=== PATIENT | male | born 1965 | race Caucasian/White ===

== ENCOUNTER → 2020-07-14 09:51 | Outpatient (CLI) | payer OTHER, SELFPAY ==
[2020-07-14] MEDS: COVID-19 VACC #1, MRNA(MOD) 100 MCG/0.5 ML VIAL IM (09:59)
== END ==
PROVIDERS: Visit Provider Internal Medicine
DX: Z23 Encounter for immunization (principal)
CPT/HCPCS: 0011A; 91301

== ENCOUNTER → 2020-08-11 10:02 | Outpatient (CLI) | payer OTHER, SELFPAY ==
[2020-08-11] MEDS: COVID-19 VACC #2, MRNA(MOD) 100 MCG/0.5 ML VIAL IM (10:05)
== END ==
PROVIDERS: Visit Provider Internal Medicine
DX: Z23 Encounter for immunization (principal)
CPT/HCPCS: 0012A; 91301

== ENCOUNTER 2024-01-15 20:58 | Emergency (ER) | payer BC, SELFPAY ==
[2024-01-15 21:16] VITALS: BP 190/118; PULSE 104; RESP 16; TEMP 37.2; O2SAT 98; BMI 32.6
[2024-01-15 21:24] VITALS: O2SAT 95
[2024-01-15 21:25] VITALS: BP 200/120; PULSE 104; O2SAT 96
--- NOTE | 2024-01-15 21:26 | ED.GENADULT ---
HPI - General Adult General Chief complaint: Hypertension Stated complaint: high bp Time Seen by Provider: 01/15/24 21:02 Source: patient Mode of arrival: Ambulatory History of Present Illness HPI narrative: 58yoM with PMH HLD, smokeless tobacco use present by private vehicle for elevated blood pressure readings. Patient states last night he didn't get a lot of sleep and this morning he was at his dentist's office for routine cleaning. As part of his dental office procedure they took a blood pressure, and it was systolic 170s. He states that because of his elevated blood pressure reading he did not undergo his cleaning. Patient states that he was checked his blood pressure several times throughout the day, and it has remained elevated. Patient presented out of concern because he knew that the last ferry from [facility] was leaving and he would be without transportation through the night if anything happens. Patient denies history of hypertension. His last doctor's appointment was 4 months ago and his blood pressure was normal. Patient was not normally measure his blood pressure and so his last known reading was 4 months ago at his PCP workup. Related Data Previous Rx's Medication Instructions Recorded amlodipine 5 mg tablet 5 mg PO DAILY #30 tabs 01/15/24 Allergies Allergy/AdvReac Type Severity Reaction Status Date / Time No Known Drug Allergies Allergy Verified 01/15/24 21:16 Patient History Social History Smoking Status: Never smoker Smoking Status: Never smoker tobacco type: smokeless tobacco alcohol intake frequency: a few times a week Substance Use Type: does not use Exam Initial Vital Signs Initial Vital Signs: Vital Signs Temperature 98.9 F 01/15/24 21:16 Pulse Rate 104 H 01/15/24 21:16 Respiratory Rate 16 01/15/24 21:16 Blood Pressure 190/118 H 01/15/24 21:16 Pulse Oximetry 98 01/15/24 21:16 Oxygen Delivery Method Room Air 01/15/24 21:16 Const: Awake, alert, no acute distress, nontoxic appearing Cardiac: regular rate, regular rhythm RESP: unlabored, clear bilaterally, no wheezing MSK: no edema, full range of motion, pulses equal Skin: Warm, Dry, intact, no rashes Neuro: AO x3, CN II-XII grossly intact, moves all extremities Course Orders Ordered: ED Orders 01/15/24 21:30 CBC Auto Diff [Complete Blood Count AUTO DIFF] Stat CMP [Comprehensive Metabolic Panel] Stat 01/15/24 21:54 EKG-12 Lead Stat Discontinued Medications Amlodipine Besylate (Amlodipine 5 Mg Tablet) 5 mg PO NOW ONE Stop: 01/15/24 22:32 Last Admin: 01/15/24 22:35 Dose: 5 mg Documented By: Vital Signs Vital signs: Vital Signs - 8 hr 01/15/24 21:16 01/15/24 21:24 01/15/24 21:25 Temperature 98.9 F Pulse Rate 104 H 104 H Respiratory Rate 16 Blood Pressure 190/118 H Pulse Oximetry 98 95 96 Oxygen Delivery Method Room Air 01/15/24 21:25 01/15/24 21:30 01/15/24 21:30 Temperature Pulse Rate 105 H Respiratory Rate 20 Blood Pressure 200/120 H 186/115 H Pulse Oximetry 97 Oxygen Delivery Method Room Air 01/15/24 22:00 01/15/24 22:00 Temperature Pulse Rate 99 H Respiratory Rate 13 Blood Pressure 183/102 H Pulse Oximetry 95 Oxygen Delivery Method Medical Decision Making Lab Data 01/15/24 21:30 01/15/24 21:30 Labs: Lab Results 01/15/24 Range/Units 21:30 WBC 9.0 (4.5-11.0) X10^3/uL RBC 4.73 (4.5-5.9) X10^6/uL Hgb 14.8 (13.5-17.5) g/dL Hct 44.1 (41-53) % MCV 93.3 (80-100) fL MCH 31.3 (26-34) PG MCHC 33.6 (30-36) % RDW 14.5 (11.6-14.8) % Plt Count 198 (150-400) X10^3/uL Neut % (Auto) 69.4 (50-75) % Lymph % (Auto) 19.2 L (25-40) % [place] % (Auto) 9.0 (3-14) % Eos % (Auto) 1.7 L (2-4) % Baso % (Auto) 0.7 (0-2) % Neut # (Auto) 6200 (2709-5409) /uL Lymph # (Auto) 1700 (7269-5255) /uL [place] # (Auto) 800 (0-900) /uL Eos # (Auto) 200 (0-450) /uL Baso # (Auto) 100 (0-100) /uL Sodium 137 (137-145) mmol/L Potassium 3.5 (3.4-5.1) mmol/L Chloride 103 (98-107) mmol/L Carbon Dioxide 24 (22-32) mmol/L BUN 17 (9-20) mg/dL Creatinine 0.99 (0.66-1.25) mg/dL Estimated GFR > 60 (>60) mL/min BUN/Creatinine Ratio 17.2 (6-22) Glucose 108 H (70-100) mg/dL Calcium 9.0 (8.4-10.2) mg/dL Total Bilirubin 0.5 (0.2-1.3) mg/dL AST 49 (17-59) IU/L ALT 40 (<50) IU/L Alkaline Phosphatase 65 (38-126) U/L Total Protein 7.9 (6.3-8.2) g/dL Albumin 4.8 (3.5-5.0) g/dL Globulin 3.1 (1.7-4.1) g/dL Albumin/Globulin Ratio 1.5 (1.0-2.8) Urine Dip Bedside Urine Glucose Negative Bedside Urine Bilirubin - Negative Bedside Urine Ketone - Negative Urine Specific [place] 1.015 Bedside Urine Occult Blood - Negative Bedside Urine pH 6.0 Bedside Urine Protein - Negative Bedside Urine Urobilinogen - Negative Bedside Urine Nitrite - Negative Bedside Urine Leukocytes - Negative Esterase Point of care testing: Urine Dip Bedside Urine Glucose Negative Bedside Urine Bilirubin - Negative Bedside Urine Ketone - Negative Urine Specific [place] 1.015 Bedside Urine Occult Blood - Negative Bedside Urine pH 6.0 Bedside Urine Protein - Negative Bedside Urine Urobilinogen - Negative Bedside Urine Nitrite - Negative Bedside Urine Leukocytes - Negative Esterase ECG Data Interpretation: normal sinus rhythm at 91bpm. Normal WI, no ST-T wave changes MDM Narrative Medical decision making narrative: asymptomatic hypertension in otherwise well patient. Physical exam benign. EKG normal sinus rhythm, no red flag signs of hypertensive crisis on exam or history. Laboratory work is reviewed, no evidence of end-organ damage. Patient counseled to keep a blood pressure diary and to bring this to his PCP for review. In interim patient will be started on low-dose amlodipine. Discharge Plan Departure Patient Disposition: Home Clinical Impression: Hypertension Instructions: DI for High Blood Pressure Activity Restrictions/Additional Instructions: Your laboratory work here today was normal, there was no protein in your urine, and your EKG does not show any signs of severe stress on your heart. Take the prescribed blood pressure medication 1 time daily. It can take several days for it to reach maximum effect in your system. Keep a blood pressure log of 1 reading in the morning and 1 reading at night and bring this to your primary care doctor. They will determine any future blood pressure adjustments at that time. Prescriptions: New amlodipine 5 mg tablet 5 mg PO DAILY Qty: 30 0RF Stand Alone Forms: Patient Portal/API
[2024-01-15 21:30] VITALS: BP 186/115; PULSE 105; RESP 20; O2SAT 97
--- NOTE | 2024-01-15 21:35 | PC.NURSE ---
Pt lying back in gurney. Appears in NAD. Denies chest pain.
[2024-01-15 22:00] VITALS: BP 183/102; PULSE 99; RESP 13; O2SAT 95
[2024-01-15 22:01] LABS: Add Manual Diff / Slide Review NO; Basophils Absolute Auto 100 /uL (0-100); Basophils Percent Auto 0.7 % (0-2); Eosinophils Absolute Auto 200 /uL (0-450); Eosinophils Percent Auto 1.7 % (2-4); Hematocrit 44.1 % (41-53); Hemoglobin 14.8 g/dL (13.5-17.5); Lymphocytes Absolute Auto 1700 /uL (1100-4500); Lymphocytes Percent Auto 19.2 % (25-40); Mean Corpuscular HGB Conc 33.6 % (30-36); Mean Corpuscular Hemoglobin 31.3 PG (26-34); Mean Corpuscular Volume 93.3 fL (80-100); Monocytes Absolute Auto 800 /uL (0-900); Neutrophils Absolute Auto 6200 /uL (1500-7000); Neutrophils Percent Auto 69.4 % (50-75); Platelet Count 198 X10^3/uL (150-400); Red Blood Cell Count 4.73 X10^6/uL (4.5-5.9); Red Cell Distribution Width 14.5 % (11.6-14.8)
--- NOTE | 2024-01-15 22:03 | EKG_ITS ---
[facility] [address] [place] [address] Test Date: 2024-01-15 Pat Name: Drew Galindo Department: [facility] Room: Gender: Male [employer] Founder: : 1965 Requested By: Order Number: [id number] Reading MD: Heriberto Mcdaniels MD Measurements Intervals [place] Rate: 91 P: 38 CA: 136 QRS: -12 QRSD: 100 T: 19 QT: 368 QTc: 452 Interpretive Statements Normal sinus rhythm Minimal voltage criteria for LVH, may be normal variant ( R in aVL ) Cannot rule out Anterior infarct , age undetermined Electronically Signed On 01-16-2024 7:58:26 PDT by Heriberto Mcdaniels MD
[2024-01-15 22:11] LABS: Alanine Aminotransferase 40 IU/L (<50); Albumin 4.8 g/dL (3.5-5.0); Albumin Globulin Ratio 1.5 (1.0-2.8); Alkaline Phosphatase 65 U/L (38-126); Aspartate Aminotransferase 49 IU/L (17-59); BUN Creatinine Ratio 17.2 (6-22); Bilirubin Total 0.5 mg/dL (0.2-1.3); Blood Urea Nitrogen 17 mg/dL (9-20); Carbon Dioxide 24 mmol/L (22-32); Chloride 103 mmol/L (98-107); Estimated Glomerular Filt Rate > 60 mL/min (>60); Globulin 3.1 g/dL (1.7-4.1); Glucose 108 mg/dL (70-100); HEMOLYSIS < 15 (0-50); Potassium 3.5 mmol/L (3.4-5.1); Sodium 137 mmol/L (137-145); Total Protein 7.9 g/dL (6.3-8.2)
[2024-01-15] MEDS: AMLODIPINE 5 MG TABLET PO (22:35)
== END 2024-01-15 22:49 | disposition home or self-care (01) ==
PROVIDERS: Emergency Provider Emergency Medicine
DX: I10 Essential (primary) hypertension (principal); R07.9 Chest pain, unspecified
CPT/HCPCS: 36415; 80053; 81003; 85025; 93005; 99283; 99284

== ENCOUNTER 2024-04-15 20:28 | Emergency (ER) | payer OTHER, SELFPAY ==
[2024-04-15] VITALS (12 sets, daily range): BP systolic 155–188; BP diastolic 86–104; PULSE 81–119; RESP 16–21; TEMP 36.8; O2SAT 92–98; BMI 31.7
--- NOTE | 2024-04-15 20:35 | DI.RAD.S_ITS ---
PROCEDURE: XR CHEST 1V INDICATIONS: chest pain TECHNIQUE: One view of the chest was acquired. COMPARISON: None. FINDINGS: Surgical changes and devices: None. Lungs and pleura: Lungs are clear. No pleural effusions or pneumothorax. Mediastinum: Mediastinal contours appear normal. Heart size is normal. Bones and chest wall: No suspicious bony lesions. Overlying soft tissues appear unremarkable. IMPRESSION: No acute cardiopulmonary abnormality is seen. Approved by: Shante Smart M.D.,Ph.D. on 04/15/2024 at 20:54
--- NOTE | 2024-04-15 20:39 | EKG_ITS ---
[place] [id number] [address] Test Date: 2024-04-15 Pat Name: Drew Galindo Department: Room: Gender: Male Rn Psychiatric: SUSANNE : 1965 Requested By: Order Number: [id number] Reading MD: Ronaldo Bush Measurements Intervals [place] Rate: 115 P: 45 AR: 146 QRS: -12 QRSD: 98 T: 32 QT: 338 QTc: 467 Interpretive Statements Sinus tachycardia Possible Left atrial enlargement RSR' or QR pattern in V1 suggests right ventricular conduction delay Cannot rule out Anterior infarct , age undetermined Electronically Signed On 04-16-2024 18:35:37 PST by Ronaldo Bush
[2024-04-15] MEDS: ASPIRIN 81 MG CHEW TAB 324 MG PO (20:49)
[2024-04-15 21:01] LABS: Prothrombin Time 10.8 SECONDS (9.4-12.5)
[2024-04-15 21:03] LABS: Add Manual Diff / Slide Review NO; Basophils Absolute Auto 100 /uL (0-100); Basophils Percent Auto 0.6 % (0-2); Eosinophils Absolute Auto 100 /uL (0-450); Eosinophils Percent Auto 1.2 % (2-4); Hemoglobin 13.9 g/dL (13.5-17.5); Lymphocytes Absolute Auto 2400 /uL (1100-4500); Lymphocytes Percent Auto 21.9 % (25-40); Mean Corpuscular Hemoglobin 30.5 PG (26-34); Mean Corpuscular Volume 92.5 fL (80-100); Monocytes Absolute Auto 900 /uL (0-900); Monocytes Percent Auto 8.2 % (3-14); Neutrophils Absolute Auto 7500 /uL (1500-7000); Neutrophils Percent Auto 68.1 % (50-75); Platelet Count 230 X10^3/uL (150-400); Red Blood Cell Count 4.54 X10^6/uL (4.5-5.9); Red Cell Distribution Width 14.7 % (11.6-14.8); White Blood Cell Count 11.1 X10^3/uL (4.5-11.0)
[2024-04-15 21:04] LABS: PTT Partial Thromboplastin Tim 28 SECONDS (25.1-36.5)
[2024-04-15 21:06] LABS: Alanine Aminotransferase 32 IU/L (<50); Albumin 4.6 g/dL (3.5-5.0); Albumin Globulin Ratio 1.5 (1.0-2.8); Alkaline Phosphatase 76 U/L (38-126); Aspartate Aminotransferase 45 IU/L (17-59); BUN Creatinine Ratio 22.3 (6-22); Bilirubin Total 0.6 mg/dL (0.2-1.3); Blood Urea Nitrogen 23 mg/dL (9-20); Calcium 9.5 mg/dL (8.4-10.2); Carbon Dioxide 26 mmol/L (22-32); Chloride 104 mmol/L (98-107); Creatine Kinase 293 U/L (55-170); Estimated Glomerular Filt Rate > 60 mL/min (>60); Globulin 3.1 g/dL (1.7-4.1); Glucose 103 mg/dL (70-100); HEMOLYSIS 27 (0-50); Lipase 125 U/L (23-300); Magnesium 1.7 mg/dL (1.6-2.3); Potassium 3.6 mmol/L (3.4-5.1); Sodium 137 mmol/L (137-145); Total Protein 7.7 g/dL (6.3-8.2)
[2024-04-15 21:17] LABS: NT-proBNP (BNP-Adult 18+) 65 pg/mL (<125); Troponin I < 0.012 ng/mL (0.01-0.034)
--- NOTE | 2024-04-15 21:40 | ED_ITS ---
HPI - General Adult General Chief complaint: Hypertension Stated complaint: not feeling well, HBP Time Seen by Provider: 04/15/24 21:38 Source: patient, RN notes reviewed and old records reviewed Mode of arrival: Ambulatory Limitations: no limitations History of Present Illness HPI narrative: 58-year-old male history of dyslipidemia, smokeless tobacco patient was seen in January 2024 was started on amlodipine here in the emergency department. Presents with complaint of feeling unwell. Patient states he has felt a little tingling. Notes that he started amlodipine 3 months ago when seen here in the emergency department did a follow up ultimately got changed over to losartan because he was told it might be better at preventing gout. Switched 3 weeks ago. Patient states he has been taking it regularly but has not checked his blood pressure since then he normally checks his blood pressure regularly and was doing well but went on vacation so has not been. He states in the last just has not been feeling well was concerned his blood pressure might be elevated. Denies any chest pain or shortness of breath. States has a little bit of epigastric discomfort but started after he ate dinner. He denies any fevers or chills no cold cough or congestion symptoms no nausea or vomiting. No radiation of pain or abdominal or back flank pain. No issues with bowel movements, no issues with urination. He has not had any swelling in his extremities. He notes his calves has been a little bit sore but he used the stair climber at the gym this Saturday pretty extensively for the 1st time in a long time states he thinks that is from that. He does note that he traveled on March 26 to fly back [place]. States family history has a father who in his 60s unsure exact cause but no other known cardiac or pulmonary, vascular or embolic history that he is aware. Related Data Previous Rx's Medication Instructions Recorded amlodipine 5 mg tablet 5 mg PO DAILY #30 tabs 01/15/24 Allergies Allergy/AdvReac Type Severity Reaction Status Date / Time No Known Drug Allergies Allergy Verified 04/15/24 20:35 Review of Systems Review of Systems ROS Unobtainable: All systems reviewed & are unremarkable except as noted in HPI and below Patient History Social History Smoking Status: Never smoker Smoking Status: Never smoker tobacco type: smokeless tobacco alcohol intake frequency: a few times a week Exam Narrative Exam Narrative: GENERAL: Alert and oriented x three, well-appearing male in mild distress. HEENT: Head normocephalic, atraumatic, EOMI, pupils reactive, face symmetric, moist mucous membranes NECK: Supple, full range of motion CARDIOVASCULAR: Slightly tachycardic rate and rhythm without murmurs, rubs or gallops. No JVD. No edema bilateral lower extremities. RESPIRATORY: Breath sounds equal bilaterally, no wheezes rales or rhonchi. No tachypnea or accessory muscle use. ABDOMEN: Soft, nontender. Normoactive bowel sounds all 4 quadrants. No guarding or rebound, rigidity, no mass, no pulsatile mass or bruit : No CVA tenderness EXTREMITIES: Normal range of motion, no clubbing or edema. Neurovascularly intact NEUROLOGICAL: Cranial nerves II through XII grossly intact. Moving all extremities SKIN: Warm, dry, no petechiae, no rashes or lesions. Initial Vital Signs Initial Vital Signs: Vital Signs Temperature 98.3 F 04/15/24 20:30 Pulse Rate 119 H 04/15/24 20:30 Respiratory Rate 18 04/15/24 20:30 Blood Pressure 173/97 H 04/15/24 20:30 Pulse Oximetry 98 04/15/24 20:30 Oxygen Delivery Method Room Air 04/15/24 20:30 Course Orders Ordered: ED Orders 04/15/24 20:35 XR chest 1V Stat EKG-12 Lead Stat 04/15/24 20:45 Complete Blood Count AUTO DIFF Stat Comprehensive Metabolic Panel Stat D Dimer Stat Lipase Stat Magnesium Stat NT-proBNP (BNP-Adult 18+) Stat PTT Partial Thromboplastin Stefan Stat Prothrombin Time INR Stat Troponin & CK Cardiac Panel Stat 04/15/24 22:44 EKG-12 Lead Stat 04/15/24 22:46 Trop I [Troponin I] Stat Discontinued Medications Aspirin (Aspirin 81 Mg Chew Tab) 324 mg PO NOW ONE Stop: 04/15/24 20:36 Last Admin: 04/15/24 20:49 Dose: 324 mg Documented By: Vital Signs Vital signs: Vital Signs - 8 hr 04/15/24 20:30 04/15/24 20:51 04/15/24 20:52 Temperature 98.3 F Pulse Rate 119 H 118 H Respiratory Rate 18 Blood Pressure 173/97 H 188/104 H Pulse Oximetry 98 98 Oxygen Delivery Method Room Air 04/15/24 20:52 04/15/24 21:00 04/15/24 21:00 Temperature Pulse Rate 117 H 115 H Respiratory Rate 19 Blood Pressure 166/99 H Pulse Oximetry 97 98 Oxygen Delivery Method 04/15/24 21:30 04/15/24 21:30 04/15/24 21:33 Temperature Pulse Rate 102 H Respiratory Rate 20 Blood Pressure 185/97 H 177/99 H Pulse Oximetry 95 Oxygen Delivery Method 04/15/24 21:33 04/15/24 22:00 04/15/24 22:19 Temperature Pulse Rate 103 H 97 H Respiratory Rate 20 18 Blood Pressure 177/98 H 177/98 H Pulse Oximetry 96 92 Oxygen Delivery Method 04/15/24 22:19 04/15/24 22:30 04/15/24 23:00 Temperature Pulse Rate 95 H 90 89 Respiratory Rate 21 20 20 Blood Pressure Pulse Oximetry 96 94 96 Oxygen Delivery Method Room Air 04/15/24 23:00 04/15/24 23:30 04/15/24 23:30 Temperature Pulse Rate 81 Respiratory Rate 20 Blood Pressure 175/98 H 163/86 H Pulse Oximetry 95 Oxygen Delivery Method 04/15/24 23:40 04/15/24 23:40 Temperature Pulse Rate 81 Respiratory Rate 16 Blood Pressure 155/86 H Pulse Oximetry 95 Oxygen Delivery Method Room Air Medical Decision Making Lab Data 04/15/24 20:45 04/15/24 20:45 Labs: Lab Results 04/15/24 04/15/24 Range/Units 20:45 22:46 WBC 11.1 H (4.5-11.0) X10^3/uL RBC 4.54 (4.5-5.9) X10^6/uL Hgb 13.9 (13.5-17.5) g/dL Hct 42.0 (41-53) % MCV 92.5 (80-100) fL MCH 30.5 (26-34) PG MCHC 33.0 (30-36) % RDW 14.7 (11.6-14.8) % Plt Count 230 (150-400) X10^3/uL Neut % (Auto) 68.1 (50-75) % Lymph % (Auto) 21.9 L (25-40) % [place] % (Auto) 8.2 (3-14) % Eos % (Auto) 1.2 L (2-4) % Baso % (Auto) 0.6 (0-2) % Neut # (Auto) 7500 H (1249-8427) /uL Lymph # (Auto) 2400 (4712-2639) /uL [place] # (Auto) 900 (0-900) /uL Eos # (Auto) 100 (0-450) /uL Baso # (Auto) 100 (0-100) /uL PT 10.8 (9.4-12.5) SECONDS INR 1.0 (0.9-1.3) APTT 28 (25.1-36.5) SECONDS D-Dimer 235 (<500) ng/ml Sodium 137 (137-145) mmol/L Potassium 3.6 (3.4-5.1) mmol/L Chloride 104 (98-107) mmol/L Carbon Dioxide 26 (22-32) mmol/L BUN 23 H (9-20) mg/dL Creatinine 1.03 (0.66-1.25) mg/dL Estimated GFR > 60 (>60) mL/min BUN/Creatinine Ratio 22.3 H (6-22) Glucose 103 H (70-100) mg/dL Calcium 9.5 (8.4-10.2) mg/dL Magnesium 1.7 (1.6-2.3) mg/dL Total Bilirubin 0.6 (0.2-1.3) mg/dL AST 45 (17-59) IU/L ALT 32 (<50) IU/L Alkaline Phosphatase 76 (38-126) U/L Total Creatine Kinase 293 H (55-170) U/L Troponin I < 0.012 < 0.012 (0.01-0.034) ng/mL NT-Pro-B Natriuret Pep 65 (<125) pg/mL Total Protein 7.7 (6.3-8.2) g/dL Albumin 4.6 (3.5-5.0) g/dL Globulin 3.1 (1.7-4.1) g/dL Albumin/Globulin Ratio 1.5 (1.0-2.8) Lipase 125 (23-300) U/L Imaging Data Chest x-ray: Radiologist's Impression: [address] [address] XRay Report Signed Patient: Drew Galindo MR#: [id number] : 1965 Acct:[id number] Age/Sex: 58 / M Date of Service: 04/15/24 Loc: ED Accession Number: [id number] Procedure: XR chest 1V Ordering Provider: Sandy Torres D.O. PROCEDURE: XR CHEST 1V INDICATIONS: chest pain TECHNIQUE: One view of the chest was acquired. COMPARISON: None. FINDINGS: Surgical changes and devices: None. Lungs and pleura: Lungs are clear. No pleural effusions or pneumothorax. Mediastinum: Mediastinal contours appear normal. Heart size is normal. Bones and chest wall: No suspicious bony lesions. Overlying soft tissues appear unremarkable. IMPRESSION: No acute cardiopulmonary abnormality is seen. Approved by: Shante Smart M.D.,Ph.D. on 04/15/2024 at 20:54 ECG Data Attestation: I personally reviewed and interpreted this ECG as follows: Prior ECG tracings: available for review Interpretation: Sinus tachycardia rate of 115 MI 146 QRS of 98 QTC of [address] elevation or depression noted. Patient has prior from 10 06/04/2024 which appears similar but was a rate of 91 at that time. Repeat EKG shows sinus rhythm with sinus arrhythmia rate 88 MI 134 QRS of 200 QTC of 454, no acute ST elevation depression. No dynamic changes. [facility] Narrative Medical decision making narrative: 58-year-old male presents with feeling little bit unwell does not know little bit of epigastric pain that started after dinner and felt sort of tingling all over. He notes he did have his blood pressure medication changed 3 weeks ago because it by work better for potential prevention of gout. He was on amlodipine switch states he got switch to losartan. He has not been checking his blood pressure since the exchange underwriting consultant. He notes that while he was on the amlodipine he was checking it regularly had good numbers. He does also note that he recently flew back March 26 from [place]. Patient is tachycardic hypertensive. Did have improvement in his tachycardia slowly over time. White count 11.1 hemoglobin of 13.9 platelets of 230. Coags are negative, electrolytes are normal BUN 23 creatinine 1.03 glucose is 103 total CK is 293 troponins less than 0.012 with a BNP of 65 lipase of 125. Repeat troponin is less than 0.012 D-dimer is negative at 235. Chest x-ray shows no acute change EKG shows sinus tach no acute ST elevation depression appears similar to January 2025. Patient continues to be mildly hypertensive. Discussed his findings from today felt to be low risk for PE is slightly tachycardic initially but resolved without any interventions and he is more hypertensive with no hypotension no hypoxia. Has a little bit of epigastric discomfort but no chest pain or shortness of breath. He has a history of hypertension had his med set switched 3 weeks ago has not been checking his blood pressure medications went since the exchange underwriting consultant. Discussed if patient would prefer to monitor his blood pressure at home to see if he needs his losartan adjusted versus returning to his amlodipine. Unclear exactly why they switched his medication but he states it was because losartan has better gout prevention. Discussed with patient felt appropriate for discharge home. Systolic blood pressure still elevated but trending down words. After discussion patient will monitor his blood pressure over the next several days to see if it is persistently elevated and called primary care to adjust his medications. If it is normalized in his completely asymptomatic he was to follow up care any other new or worsening changes or other concerns patient is to return to the ED for re-evaluation. Discharge Plan Departure Patient Disposition: Home Clinical Impression: Hypertension Activity Restrictions/Additional Instructions: Follow up with primary care, please continue to monitor your blood pressure fit continues to be persistently elevated talk with your physician about adjusting your blood pressure medication. Please return if you have new chest pain or shortness of breath, lightheadedness or passing out, worsening abdominal back or flank pain, persistent vomiting, new swelling of your extremities, fevers or other new or concerning changes. Prescriptions: No Action amlodipine 5 mg tablet 5 mg PO DAILY Qty: 30 0RF Referrals: Miscellaneous,DoctorMD [Primary Care Provider] - Stand Alone Forms: Patient Portal/API/Survey
--- NOTE | 2024-04-15 22:50 | EKG_ITS ---
[address] [address] Test Date: 2024-04-15 Pat Name: Drew Galindo Department: Room: Gender: Male Service Desk Lead: JOAN : 1965 Requested By: Order Number: [id number] Reading MD: Ronaldo Bush Measurements Intervals [place] Rate: 88 P: 43 SC: 134 QRS: -7 QRSD: 100 T: 22 QT: 376 QTc: 454 Interpretive Statements Normal sinus rhythm with sinus arrhythmia Cannot rule out Anterior infarct , age undetermined Electronically Signed On 04-16-2024 18:35:54 PST by Ronaldo Bush
[2024-04-15 23:03] LABS: D Dimer 235 ng/ml (<500)
[2024-04-15 23:16] LABS: Troponin I < 0.012 ng/mL (0.01-0.034)
== END 2024-04-15 23:50 | disposition home or self-care (01) ==
PROVIDERS: Emergency Provider Emergency Medicine
DX: I10 Essential (primary) hypertension (principal); F17.290 Nicotine dependence, other tobacco product, uncomplicated
CPT/HCPCS: 36415; 71045; 80053; 82550; 83690; 83735; 83880; 84484; 85025; 85379; 85610; 85730; 93005; 99284